=== PATIENT | female | born 2000 | race Two or more races ===

== ENCOUNTER 2021-04-27 16:10 | Emergency (ER) | payer OTHER ==
[~2021-04-27] VITALS: Ht 167.6 cm; Wt 49.9 kg
[~2021-04-27 16:10] MED LIST: AZITHROMYCIN250 MG; BRONCOTRON-D S473 ML
== END 2021-04-27 19:04 | disposition home or self-care (01) ==
LOC: ER 16:10
DX: S61.411A Laceration without foreign body of right hand, initial encounter (principal); W26.0XXA Contact with knife, initial encounter; Y93.G3 Activity, cooking and baking; Y92.59 Other trade areas as the place of occurrence of the external cause; Y99.8 Other external cause status

== ENCOUNTER 2021-05-05 07:13 | Emergency (ER) | payer OTHER ==
[~2021-05-05] VITALS: Ht 167.6 cm; Wt 53.1 kg
== END 2021-05-05 10:05 ==
LOC: ER 07:13
DX: Z48.02 Encounter for removal of sutures (principal)